=== PATIENT | male | born 1950 | race Caucasian/White ===

== ENCOUNTER 2017-11-27 09:53 | Day surgery (SDC) | payer MEDICARE ==
[2017-11-27] MEDS ORDERED: OMEGCAP PO (10:48)
[2017-11-27] MEDS ORDERED: DIGO0.12 PO (10:48)
[2017-11-27] MEDS ORDERED: MULTTAB67 PO (10:48)
[2017-11-27] MEDS ORDERED: FURO40TA PO (10:48)
[2017-11-27] MEDS ORDERED: APIX5TAB PO (10:48)
[2017-11-27] MEDS ORDERED: ISOS30TA3 PO (10:48)
[2017-11-27] MEDS ORDERED: SOTA120T PO (10:48)
[2017-11-27] MEDS ORDERED: ATOR80TA45 PO (10:48)
[2017-11-27] MEDS ORDERED: ALBUAER3 INH (10:48)
[2017-11-27] MEDS ORDERED: SPIR25TA PO (10:48)
[2017-11-27] MEDS ORDERED: SACU1TAB7 PO (10:48)
[2017-11-27] MEDS ORDERED: VENL37.595 PO (10:48)
[2017-11-27] MEDS ORDERED: CLOP75TA PO (10:48)
[2017-11-27] MEDS ORDERED: CARV12.52 PO (10:50)
[2017-11-27] MEDS ORDERED: PHENYLEPH/NS 1000 MCG/10 ML SYR IV ONE (12:00)
[2017-11-27] MEDS ORDERED: PROPOFOL 200 MG/20 ML AMP IV ONE (12:00)
[2017-11-27] MEDS ORDERED: CHLORHEXIDINE GLUCONATE 2 % 1 PACK (2 CLOTHS) TOPICAL PRN (13:45)
[2017-11-27] MEDS ORDERED: LACTATED RINGER'S 1000 ML IV PRN (13:45)
[2017-11-27] MEDS ORDERED: POVIDONE IODINE 5% (ANTISEPSIS KIT) 4 APPLICATIONS EACH NARE PRN (13:45)
[2017-11-27] MEDS ORDERED: METOPROLOL TARTRATE 25 MG TAB PO PRN (13:45)
[2017-11-27] MEDS ORDERED: SODIUM CHLORID 0.9% 500 ML IV PRN (13:45)
--- NOTE | 2017-11-27 23:18 | EKG ---
Date Performed: 11/27/2017 Time Performed: 10:21:08 PTAGE: 67 years EKG: Atrial flutter/tachycardia with rapid ventricular response with 2:1 A-V block. Aberrant kristen ts vs PVCs Inferior/lateral ST-T changes Low QRS voltages in precordial leads Abnormal ECG NO PREVIOUS TRACING DOCTOR: Michel Friend Interpretating Date/Time 11/27/2017 23:17:10
--- NOTE | 2017-11-28 14:21 | EKG ---
Date Performed: 11/27/2017 Time Performed: 14:34:44 PTAGE: 67 years EKG: Sinus rhythm with PVC(s) with borderline 1st degree A-V block. Incomplete LBBB Inferior/lateral ST-T changes may be due to myocardial ischemia Consider anterolateral ischemia Low QRS voltages in precordial leads Ab normal ECG PREVIOUS TRACING : 11/27/2017 10.21 DOCTOR: Mau العلي Interpretating Date/Time 11/28/2017 14:20:19
--- NOTE | 2017-11-29 10:32 | MR ---
cc: ARIN SWAN DATE: 11/27/2017 PROCEDURE PERFORMED Cardioversion. INDICATION Atrial fibrillation/flutter. PROCEDURE PERFORMED DC cardioversion. PROCEDURE After the patient was sedated by anesthesia 50 joule biphasic shock was delivered and converted the patient to AV paced rhythm. The patient remained stable and was discharged in stable condition. DIAGNOSIS Successful cardioversion of atrial fibrillation/atrial flutter. DISPOSITION Mr. Park will be monitored on telemetry after his procedure. We will continue antiarrhythmic therapy with Sotalol. I will see him back in followup in our office after discharge. MD DAVID Breaux/TLL /1:40 PM /10:21 AM
== END 2017-11-27 15:05 | disposition home or self-care (01) ==
LOC: HDOC 09:53 → HDIC 09:54 → HDOC 15:05
PROVIDERS: ATTEND Internal Medicine Interventional Cardiology
DX: I48.0 Paroxysmal atrial fibrillation (principal); I47.2 Ventricular tachycardia; I50.9 Heart failure, unspecified; I42.9 Cardiomyopathy, unspecified; I25.9 Chronic ischemic heart disease, unspecified; E78.5 Hyperlipidemia, unspecified; Z95.810 Presence of automatic (implantable) cardiac defibrillator; Z79.01 Long term (current) use of anticoagulants
CPT/HCPCS: 92960; 93005; J2370